=== PATIENT | female | born 1995 | race Two or more races ===

== ENCOUNTER 2018-10-18 20:42 | Emergency (ER) | payer OTHER ==
[2018-10-18 21:05] VITALS: BP 125/55; PULSE 84; TEMP 97.2; BMI 23.4
--- NOTE | 2018-10-18 21:06 | PDOC ---
Rapid Medical Evaluation Chief Complaint: Injury Time Seen by Provider: 10/18/18 21:03 Medical Evaluation: Allergies Allergy/AdvReac Type Severity Reaction Status Date / Time No Known Allergies Allergy Verified 01/14/15 19:21 10/18/18 21:03 I have performed a brief in-person evaluation of this patient. The patient presents with a chief complaint of: right foot pain s/p kicking fireplace Pertinent physical exam findings: tender and swollen over plantar surface of right foot. _defomity I have ordered the following: xray The patient will proceed to the ED for further evaluation. Discharge Disposition - Diagnosis Right foot pain - Referrals - Patient Instructions - Post Discharge Activity
--- NOTE | 2018-10-18 21:15 | PDOC ---
History of Present Illness - General Chief Complaint: Injury Stated Complaint: RIGHT FOOT HURT Time Seen by Provider: 10/18/18 21:03 - History of Present Illness Initial Comments: 10/18/18 21:15 23-year-old female presents for evaluation of right foot pain after kicking the fireplace Past History - Past Medical History Allergies/Adverse Reactions: Allergies Allergy/AdvReac Type Severity Reaction Status Date / Time No Known Allergies Allergy Verified 10/18/18 21:05 Home Medications: Ambulatory Orders NK [No Known Home Medication] 01/14/15 COPD: No - Suicide/Smoking/Psychosocial Hx Smoking History: Never smoked Have you smoked in the past 12 months: No Information on smoking cessation initiated: No Hx Alcohol Use: No Drug/Substance Use Hx: No Substance Use Type: None Review of Systems - Review of Systems Musculoskeletal: Yes: Joint Pain *Physical Exam - Vital Signs Last Vital Signs Temp Pulse Resp BP Pulse Ox 97.2 F L 84 18 125/55 L 100 10/18/18 21:01 10/18/18 21:01 10/18/18 21:01 10/18/18 21:01 10/18/18 21:01 - Physical Exam Comments: 10/18/18 21:15 She has refused physical examination and refuses to let me touch her foot, there is no swelling visualized there are no gross motor deficit she moves her toes. She points to the medial aspect of the right foot as the area of her discomfort. Medical Decision Making - Medical Decision Making 10/18/18 22:00 No fracture on radiograph weight-bear as tolerated with heart social and crutches follow up with orthopedics *DC/Admit/Observation/Transfer Diagnosis at time of Disposition: Right foot pain, Contusion, foot - Discharge Dispostion Disposition: HOME Condition at time of disposition: Stable Decision to Admit order: No - Referrals Referrals: Abbe Ferguson [Primary Care Provider] - Manuel Cade DO [Staff Physician] - - Patient Instructions Printed Discharge Instructions: Contusion Additional Instructions: No displaced fracture on x-ray today. Tylenol and Motrin as directed for pain. Weight-bear as tolerated with hard sole shoe and crutches. Follow-up with orthopedics without fail in 1-2 days for further evaluation and treatment options. Return to the emergency room for worsening symptoms. - Post Discharge Activity
== END 2018-10-18 22:16 | disposition home or self-care (01) ==
LOC: JERFT 20:42
DX: S90.31XA Contusion of right foot, initial encounter (principal); W22.09XA Striking against other stationary object, initial encounter; Y93.89 Activity, other specified; Y92.89 Other specified places as the place of occurrence of the external cause; Y99.8 Other external cause status
CPT/HCPCS: 73630-TC-RT-FY; 99281-25

== ENCOUNTER 2023-01-06 05:23 | Day surgery (SDC) | payer OTHER ==
[2023-01-05 15:46] VITALS: BMI 26.4
[~2023-01-06 05:23] MED LIST: ceFAZolin SODIUM 1 GM VIAL IVPB ONE
[2023-01-06 09:18] LABS: BASO % 0.7 % (0-2.0); EOS % 2.3 % (0-4.5); HEMATOCRIT 37.7 % (32.4-45.2); HEMOGLOBIN 12.8 GM/dL (10.7-15.3); LYMPH % 17.2 % (8-40); MCHC 33.9 g/dl (32.0-36.0); MEAN CELL VOLUME 82.5 fl (80-96); MEAN PLT VOLUME 7.5 fl (7.5-11.1); MONO % 2.8 % (3.8-10.2); PLATELET COUNT 267 10^3/uL (134-434); RBC 4.58 M/mm3 (3.60-5.2); RDW 14.5 % (11.6-15.6); WHITE BLOOD COUNT 10.2 K/mm3 (4.0-10.0)
[2023-01-06 09:24] LABS: INR 1.02 (0.83-1.09); PROTHROMBIN TIME (PATIENT) 11.8 SEC (9.7-13.0)
[2023-01-06 09:26] LABS: ACTIVATED PTT 30.4 SECONDS (25.2-36.5)
[2023-01-06 09:51] LABS: POTASSIUM 3.8 mmol/L (3.5-5.1)
[2023-01-06 09:52] LABS: CALCIUM 9.4 mg/dL (8.5-10.1)
[2023-01-06 09:53] LABS: BLOOD UREA NITROGEN 8.7 mg/dL (7-18)
[2023-01-06 09:56] LABS: CREATININE 0.7 mg/dL (0.55-1.3)
[2023-01-06] MEDS ORDERED: MIDAZOLAM HCL 2 MG/2 ML SINGLE DOSE VIAL ONE (10:02)
[2023-01-06] MEDS ORDERED: PROPOFOL 40 ML ONE (10:02)
[2023-01-06] MEDS ORDERED: ONDANSETRON 4 MG/2 ML VIAL ONE (10:05)
[2023-01-06] MEDS ORDERED: DEXAMETHASONE SOD PHOSPHATE 4 MG/1 ML VIAL ONE (10:05)
[2023-01-06] MEDS ORDERED: KETOROLAC TROMETHAMINE 30 MG/1 ML VIAL ONE (10:05)
[2023-01-06] MEDS ORDERED: LIDOCAINE HCL/PF 2% SDV 5ML VIAL ONE (10:05)
[2023-01-06] MEDS ORDERED: ceFAZolin SODIUM 1 GM VIAL IVPB ONE (10:55)
[2023-01-06 12:36] VITALS: RESP 18
[2023-01-06 13:08] VITALS: BP 116/62; PULSE 88; TEMP 97.7
== END 2023-01-06 13:09 | disposition home or self-care (01) ==
LOC: JASU-SURG 05:23
PROVIDERS: ATTEND Obstetrics & Gynecology
PROC: 10D17ZZ Extraction of Products of Conception, Retained, Via Natural or Artificial Opening (ICD-10-PCS; principal; 2023-01-06 10:00)
DX: O02.1 Missed abortion (principal)
CPT/HCPCS: 36415; 80048; 85025; 85610; 85730; 86850; 86900; 86901; 88305-TC; 94760